=== PATIENT | female | born 1985 | race Caucasian/White ===

== ENCOUNTER → 2019-03-19 | Emergency (ER) | payer BC, MEDICAID, OTHER | LOC: C.EROB 18:35 ==

== ENCOUNTER 2019-03-21 12:05 | Inpatient (IN) | payer BC ==
[2019-03-21 12:23] VITALS: BMI 39.1
[2019-03-21 12:41] LABS: BASO # 0.1 K/uL (0.0-0.2); BASO % 0.9 % (0.0-2.0); EOS # 0.1 K/uL (0.0-0.7); EOS % 0.8 % (0.0-4.0); HEMOGLOBIN 12.6 g/dL (11.0-16.0); LYMPH # 1.4 K/uL (1.0-4.3); LYMPH % 16.5 % (20.0-40.0); MEAN CELL VOLUME 79.6 fL (81.0-99.0); MEAN CORPUSCULAR HEMOGLOBIN 26.5 pg (27.0-31.0); MEAN CORPUSCULAR HGB CONC 33.3 g/dL (33.0-37.0); MEAN PLATELET VOLUME 9.4 fL (7.2-11.7); MONO # 0.5 K/uL (0.0-0.8); MONO % 6.4 % (0.0-10.0); NEUT # 6.4 K/uL (1.8-7.0); NEUT % 75.4 % (50.0-75.0); NRBC % 0.1 % (0.0-2.0); RBC 4.77 Mil/uL (3.80-5.20); RED CELL DISTRIBUTION WIDTH 17.3 % (11.5-14.5); WHITE BLOOD COUNT 8.5 K/uL (4.8-10.8)
[2019-03-21 12:54] LABS: BLOOD UREA NITROGEN 10 mg/dL (7-17); CALCIUM 8.6 mg/dl (8.6-10.4); GFR NON-AFRICAN AMERICAN > 60; SQUAMOUS EPITHIAL 5 /hpf (0-5); URINE BILIRUBIN NEGATIVE (NEGATIVE); URINE BLOOD 3+ (NEGATIVE); URINE CLARITY Hazy (Clear); URINE COLOR Yellow (YELLOW); URINE GLUCOSE (UA) NORMAL (Normal); URINE LEUKOCYTE ESTERASE NEG Leu/uL (Negative); URINE PROTEIN 1+ mg/dL (NEGATIVE); URINE UROBILINOGEN NORMAL mg/dL (0.2-1.0)
[2019-03-21 12:58] LABS: ALBUMIN 3.8 g/dL (3.5-5.0); ALT/SGPT 13 U/L (9-52); AST/SGOT 62 U/L (14-36)
[2019-03-21] MEDS ORDERED: Bupivacaine HCl/FentaNYL Cit 0 ML EPI ONE (12:59)
[2019-03-21] MEDS ORDERED: Bupivacaine HCl/FentaNYL Cit 100 ML EPI ONE ×2 (13:01→20:45)
[2019-03-21 13:26] LABS: INR 0.9
[2019-03-21] MEDS ORDERED: Lactated Ringer's 1,000 ML IV ONE (14:21)
--- NOTE | 2019-03-21 18:24 | OBHP ---
Datetime: 03/21/2019 13:00 IP Adm Impression: Postterm, intrauterine ; No Active Labor; Intact Membranes IP Chief Complaint Other: Polyhydramnios; LGA. Maternal obesity IP Admit Plan: Admit to unit IP Admit Plan Other: Cervical ripening Admit Comment, IP Provider: This is a private patient of Dr. Dalila Zamorano Patient is a 34 y.o. , LMP 06/12/18, WAYNE 03/19/19, EGA 40w 2d confirmed by sono at 13 w 2d refered by PMD for delivery. Seen in office this morning; cervical exam at approx 1000 hours 4c m/50%. Currently, reports (+) AFM; vaginal spotting - soon after cervical exam. Denies LOF. (+) occ C tx, pain scale 4/10, every 30 minutes x 60 seconds. BPs noted upon arrival: denies headaches, blurred vision, spots, epigastric or RUQ pain. Reports increasing pedal edema in past 2 days. Patient admits to being "very nervous". care: polyhydramnios, CALI 03/18, 18.82 cm; EFW 8lb 8oz (94 percentile). Anemic. Morbidly o bese. P Ob: 2009, , female, 6lb 7oz, [facility]. Post -elevated BP x 1 week. 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 Denies STIs, abnormal Pap, ovarian cysts PMH: denies PSH: denies Drug allergies: robitussin and mucinex = palpitations NO food allergies Meds: PNV, iron - each, QD Soc Hx: denies tobacco, illicit drug or EtOH use. x 11 years. Works for [employer] Fam Hx: Mother 1984, complications of childbirth, related to elevated BP. Father 2016, age 65, complications of HTN and cardiac diseases. No known fam h/o cancer P.E.: as above. Morbidly obese, in NAD. Awake, alert, oriented to time, person and place. Pleasant and cooperative. Assessment: 34 y.o P1, 40w 2d, polyhydramnios, possible LGA for delivery. Will initiate labor with cervical ripening. Patient is receptive to epidural for pain relief. Elevated BP noted; no other sti gmata for pre-eclampsia. Category 1 tracing. Patient is clinically stable. Plan: 1) Admit 2) NPO 3) Continuous EFM 4) Admission and pre-eclamptic labs 5) Epidural 6) Cytotec, per vagina 7) Monitor BP 8) Anticipate vaginal delivery - as per, and D/W, Dr. Zamorano Adddendum: 1410 hours CBC resulted: plt 275, H/H 12.6/38.0 - Epidural placed by anesthesiologist without incdent - Cervical exam as above. cytotec 25 micrograms placed in endocervical canal without incident. Of note: gush of blood-tinged amnionic fluid noted at time of cervical exam. Possible high leak as "fore bag" still palpated. Pelvic Type - PN: Adequate Extremities - PN: Normal Abdomen - PN: Normal Back - PN: Normal Breast - PN: Not Done Lungs - PN: Normal Heart - PN: Abnormal Thyroid - PN: Not Done Neurologic - PN: Normal HEENT - PN: Normal General - PN: Normal Presentation-Admit: Vertex FHR - Baseline A Provider: 155 Contraction Comments Provider: 5-6 Comments, ACOG Physical Exam: Abdomen: Obese. Gravid. Soft. Non tender in all quadrants. Fundal heig ht 42 cm All other systems reviewed and are negative Gestation - Est Wks by US: 40w 2d IP Hx Assessment: The History has been Reviewed and is Current IP Indication for Induction: Polyhydramnios NICHD Variability Prov Fetus A: Moderate 6-25bpm NICHD Accel Fetus A IP Provider: 15X15 FHR Category Provider Fetus A: Category I NICHD Decel Fetus A IP Provider: None Dilatation, Provider: 5 Effacement, Provider: 60 Station, Provider: -3 Genitourinary Exam: Normal DTRs - PN: Not Done
[2019-03-21] MEDS ORDERED: Oxytocin 30 UNIT in NS 500 ml 30 UNITS/500 ML BAG IV ONE (20:35)
--- NOTE | 2019-03-21 22:19 | OBPN ---
Datetime: 03/21/2019 19:35 IP Progress Impression: Normal progression of labor IP Procedures: Artificial ROM; Scalp Electrode; Sterile Vag Exam IP Progress Plan: Continue present management; Augmentation; Anticipate Vaginal Delivery Membranes, Provider: Ruptured Amniotic Fluid Color, Provider: Clear Contraction Comments Provider: irregular FHR - Baseline A Provider: 155 Gestation - Est Wks by US: 40w 2d Vital Signs Provider: Reviewed; Within Normal Limits NICHD Accel Fetus A IP Provider: 15X15 FHR Category Provider Fetus A: Category I NICHD Variability Prov Fetus A: Moderate 6-25bpm Dilatation, Provider: 6 Effacement, Provider: 90 Station, Provider: -3 NICHD Decel Fetus A IP Provider: None Datetime: 03/21/2019 18:57 IP Progress Note Comment: Cervical exam performed at 1850 to assess for possible second dose of cyto amira - as above. Assessment: 34 y.o. P1, 40w 2d, polyhydraminios. Adequate response to cytotec. Category 1 tracing. Patient is clinically stable. Plan: 1) Anticipate AROM 2) Possible pitocin augmentation 3) Anticipate vaginal delivery - as per Dr. Zamorano Datetime: 03/21/2019 13:00 Presentation-Admit: Vertex
--- NOTE | 2019-03-21 22:22 | OBPN ---
Datetime: 03/21/2019 19:35 IP Progress Note Comment: Vaginal exam perfomred as above. AROM completed with placement of ISE with out incident - copiuos amount of clear amnionic fluid obtained. head well applied to the cervix . Asseeement: 34 y.o. P0, 40w 2d, polyydramnios - resolved. Category 1 tracing. BPs havenormalized. Clinically stable Plan: 1) As above. 2) Observe 3) Anticipate pitocin for augmentation - as per Dr. Zamorano
--- NOTE | 2019-03-22 02:03 | OBPN ---
Datetime: 03/22/2019 01:58 IP Progress Impression: Normal progression of labor IP Progress Plan: Continue present management; Anticipate Vaginal Delivery Membranes, Provider: Ruptured FHR - Baseline A Provider: 175 Gestation - Est Wks by US: 40.3 Presentation-Admit: Vertex IP Progress Note Comment: pt seen and examiend fo rpgresison of labor admitted 5cm, rom, cytotec, ptiocn s/p peidural pt feles pressure VE; see above a/p P1 @ 40.3 wks GA fully dilated iwth cat II oxygen left lateral debubuti IVH cont to coadn femf will dc tiocn start psuhing atnic nspvsd Vital Signs Provider: Reviewed FHR Category Provider Fetus A: Category II NICHD Variability Prov Fetus A: Moderate 6-25bpm Dilatation, Provider: 10 Effacement, Provider: 100 Station, Provider: 1 NICHD Decel Fetus A IP Provider: None
[2019-03-22] MEDS ORDERED: Sodium Citrate/Citric Acid 15 ml Sol PO STA (04:31)
[2019-03-22] MEDS ORDERED: cefOXitin IV 2 gm in Dextrose 2 GM/50 ML BAG IVPB ONE (04:38)
[2019-03-22] MEDS: cefOXitin IV 2 gm in Dextrose 2 GM/50 ML BAG IVPB SCH ×3 (04:45→20:54)
--- NOTE | 2019-03-22 04:48 | OBPN ---
Datetime: 03/22/2019 04:33 IP Progress Impression: Arrest of dilatation/descent IP Informed Consent Obtain: Section Delivery IP Progress Plan: Deliver- Section Contraction Comments Provider: q 2- 3min IP Progress Note Comment: pt fully dilated and pusing 3+ horus with cat II tracing pt coulsed on ptllcs vs continue pushign given cat II r/b/a/i ptlcs dw paeitn, consetn obatined vs see above a/p @ 40+ wks with arrest of descent conestn obatined or/anesthis aware angiboics abodmian prep washburn to gaivyt scds FHR Category Provider Fetus A: Category II Dilatation, Provider: 10 Effacement, Provider: 100 Station, Provider: -2
[2019-03-22] MEDS ORDERED: Morphine 1 mg/ml preservative-free Inj(Duramorph) ONE (04:52)
[2019-03-22] MEDS ORDERED: ePHEDrine 50 mg/ml Inj ONE (05:18)
[2019-03-22] MEDS ORDERED: Oxytocin 10 Units/ml Inj ONE (05:27)
[2019-03-22] MEDS ORDERED: Oxytocin 30 UNIT in NS 500 ml 500 ML IV ONE (06:07)
--- NOTE | 2019-03-22 06:17 | OBDS ---
DELIVERY PERSONNEL Delivery Doctor: Dalila Zamorano MD Scrub Nurse: Joan Barros OBT Diamond Cleaner: Tory Bailey RN Anesthesiologist: Taina Fuller MD MATERNAL INFORMATION Delivery Anesthesia: Epidural; Spinal Medications in Delivery: MEFOXIN 2 GMS Estimated Blood Loss (ml): 800 Placenta Cultured: Yes Maternal Complications: Prolonged Second Stage > 2 Hrs Other Maternal Complications: Polyhydramnious maternal obesity Provider Comments: pltcs nuchal x 3 tight live femlae infnat agpras 9,9 peiaticn presnt for delieyr noral appeairn uterus, bues and oare b/l LABOR SUMMARY EDC: 03/19/2019 00:00 No. Babies in Womb: 1 Attempted: No Labor Anesthesia: Epidural LABOR INFORMATION Reason for Induction: Not Applicable Onset of Labor: 03/21/2019 09:00 Complete Dilatation: 03/22/2019 01:25 Cervical Ripening Agents: Cytotec @ Oxytocin: Augmentation Group B Beta Strep: Negative Steroids Given: None Reason Steroids Not Administered: Not Applicable MEMBRANES Membranes Rupture Method: Artificial Rupture of Membranes: 03/21/2019 19:29 Length of Rupture (hrs): 9.87 Amniotic Fluid Color: Clear Amniotic Fluid Amount: Copious Amniotic Fluid Odor: Normal STAGES OF LABOR Stage 1 hrs: 16 Stage 1 min: 25 Stage 2 hrs: 3 Stage 2 min: 56 Stage 3 hrs: 0 Stage 3 min: 1 Total Time in Labor hrs: 20 Total Time in Labor min: 22 VAGINAL DELIVERY Episiotomy: None CSECTION DELIVERY Primary Indication: Arrest of Descent CSection Urgency: Emergency CSection Incidence: Primary Labor: Labor Elective: Nonelective CSection Incision: Lower Uterine Transverse BABY A INFORMATION Infant Delivery Date/Time: 03/22/2019 05:21 Method of Delivery: Born in Route : No : N/A Forceps: N/A Vacuum Extraction: N/A Shoulder Dystocia : No SHOULDER DYSTOCIA BABY A Delivery Date/Time: 03/22/2019 05:21 PRESENTATION/POSITION BABY A Presentation: Cephalic Cephalic Presentation: Vertex Vertex Position: Right Occipital Posterior Breech Presentation: N/A PLACENTA INFORMATION BABY A Placenta Delivery Time : 03/22/2019 05:22 Placenta Method of Delivery: Manual Removal Placenta Status: Delivered SCORES BABY A Heart Rate 1 min: >100 bpm Resp Effort 1 min: Good Cry Reflex Irritability 1 min: Cough or Sneeze or Pulls Away Muscle Tone 1 min: Some Flexion of Extremities Color 1 min: Body Ep[place], Extremities Blue Resuscitation Effort 1 min: Tactile Stimulation SCORE 1 MIN: 8 Heart Rate 5 min: >100 bpm Resp Effort 5 min: Good Cry Reflex Irritability 5 min: Cough or Sneeze or Pulls Away Muscle Tone 5 min: Active Motion Color 5 min: Body Epworth, Extremities Blue SCORE 5 MIN: 9 INFORMATION BABY A Gestational Age at Delivery: 40.2 Gestational Status: Term (Annotations: Data stored by [facility] on behalf of user) Infant Outcome : Liveborn Infant Sex: Female IDENTIFICATION/MEDS BABY A ID Band Number: [id number] Sensor Number: [id number] WEIGHT/LENGTH BABY A Birthweight (gms): 3740 Weight (lb): 8 Infant Weight (oz): 4 Length Inches: 21.00 Length cms: 53.3 CORD INFORMATION BABY A No. Cord Vessels: 3 Nuchal Cord Other: AROUND THE NECK X3 TIGHT Cord Blood Taken: Yes Infant Suction: None; Mouth
[2019-03-22] MEDS ORDERED: Naloxone 0.4 mg/ml Inj (Adult) IVP PRN (06:22)
[2019-03-22] MEDS ORDERED: DiphenhydrAMINE 50 mg/ml Inj IVP PRN (06:22)
[2019-03-22] MEDS: Lactated Ringer's 1,000 ML IV SCH ×2 (07:48→23:35)
[2019-03-22] MEDS: Prenatal Multivit/Folic Acid/Iron Tab PO SCH (12:05)
[2019-03-22] MEDS: Simethicone 80 mg Chewtab PO SCH ×4 (13:02→22:29)
[2019-03-22 14:45] LABS: RUBELLA AB (IGG) 11.8 index
--- NOTE | 2019-03-22 16:24 | OP ---
PROCEDURE DATE: 03/22/2019 PREOPERATIVE DIAGNOSES: Arrest of descent, polyhydramnios, failed induction of labor. POSTOPERATIVE DIAGNOSES: Arrest of descent, polyhydramnios, failed induction of labor. PROCEDURE PERFORMED: Primary low-transverse section. SURGEON: Dalila Zamorano MD ESTHETICIAN/SPA COORDINATOR: Eyad Langford MD. TYPE OF ANESTHESIA: Epidural, spinal. ESTIMATED BLOOD LOSS: 800 mL. BLOOD PRODUCT: None. COMPLICATIONS: None. OPERATIVE FINDINGS: Normal-appearing uterus, tubes, and ovaries. Live female in ROP position. Tight nuchal x3. Documentation Engineer present for delivery. Apgars 8 and 9. Weight of 8 pounds 4 ounces. SPECIMEN: Placenta. DESCRIPTION OF PROCEDURE: The patient was taken to the operating room where she had spinal epidural anesthesia. Once found to be adequate, she was placed on the operating table in dorsal supine position. The patient was then prepped and draped in the usual sterile fashion. A time-out confirmed correct patient and correct procedure. The patient was re-examined and was noted to be same exam of 10, 100, and -2. After the patient was prepped and draped in the usual sterile fashion and the time-out was performed, a Pfannenstiel skin incision was made with a scalpel and carried down to the underlying fascia with Bovie. The fascia was incised in the midline. The incision was extended laterally with the Bovie. The inferior aspect of the fascial incision was grasped with Devin clamps and the underlying rectus muscles were dissected off bluntly. Attention was then turned to the superior aspect of the fascial incision, which in a similar fashion was grasped with Allis and Devin clamps, and the underlying rectus muscles were dissected off bluntly. The rectus muscles were the bluntly in the midline using two Allis clamps and entered into clear space. The peritoneum entered in a clear space. The incision was extended laterally and superiorly until there was good visualization of the bladder. The lower end of the Sanjay was then reinserted. The vesicouterine peritoneum was incised in transverse fashion with the Metzenbaum scissors. The bladder flap was created digitally. The lower end of the Sanjay was then re-inserted. Lower uterine segment was incised in a transverse fashion. The uterine incision was extended laterally bluntly. The surgeon's hand entered the uterine cavity. The infant's head was brought to the uterine incision and 's head was delivered atraumatically, followed by delivery of the shoulders, followed by delivery of the body. There was tight nuchal cord x3 that was reduced. Both oral and nasal passages of the baby were bulb suctioned. The umbilical cord was clamped and cut. The baby was handed off to the awaiting airline operations agent. Cord blood and cord gases were collected and sent x2. The placenta was then delivered manually. The uterus was exteriorized and cleared of all clots and debris. The uterine incision was closed with 0 Vicryl in a running continuous locked fashion. A second layer of the same suture was used to close the uterus in a continuous manner and running imbricating manner with good hemostasis was noted at the incision site. The uterus was then returned to the abdomen. Pericolic gutters were cleared of all clots and debris with good hemostasis noted on all incision sites. The peritoneum was reapproximated with 2-0 chromic in a running continuous fashion. The rectus was reapproximated with a 2-0 chromic in an interrupted manner. The fascia was reapproximated with 0 Vicryl in a running continuous fashion and the subcutaneous space with 2-0 plain and the skin was reapproximated with juan. At the end of the procedure, all needle, sponge, and instrument counts were noted to be correct x2. The patient tolerated the procedure well and was transferred to the recovery room in stable condition. Dalila Zamorano MD
[2019-03-22] MEDS: Oxycodone/Acetaminophen 5/325 mg Tab PO PRN ×2 (18:07→22:30)
[2019-03-23] MEDS: cefOXitin IV 2 gm in Dextrose 2 GM/50 ML BAG IVPB SCH (04:26)
[2019-03-23] MEDS: Oxycodone/Acetaminophen 5/325 mg Tab PO PRN ×4 (05:01→21:11)
[2019-03-23] MEDS ORDERED: Bisacodyl 5mg EC Tab PO ONE (06:08)
[2019-03-23 06:24] LABS: BASO % 0.2 % (0.0-2.0); EOS # 0.1 K/uL (0.0-0.7); EOS % 0.4 % (0.0-4.0); HEMOGLOBIN 10.2 g/dL (11.0-16.0); LYMPH # 1.6 K/uL (1.0-4.3); LYMPH % 10.7 % (20.0-40.0); MEAN CELL VOLUME 80.1 fL (81.0-99.0); MEAN CORPUSCULAR HEMOGLOBIN 25.9 pg (27.0-31.0); MEAN CORPUSCULAR HGB CONC 32.3 g/dL (33.0-37.0); MEAN PLATELET VOLUME 8.6 fL (7.2-11.7); MONO # 0.8 K/uL (0.0-0.8); MONO % 5.1 % (0.0-10.0); NEUT # 12.4 K/uL (1.8-7.0); NEUT % 83.6 % (50.0-75.0); RBC 3.93 Mil/uL (3.80-5.20); RED CELL DISTRIBUTION WIDTH 16.9 % (11.5-14.5); WHITE BLOOD COUNT 14.8 K/uL (4.8-10.8)
[2019-03-23 06:38] LABS: ALB/GLOB RATIO 0.9 (1.0-2.1); ALBUMIN 2.6 g/dL (3.5-5.0); ALT/SGPT 24 U/L (9-52); AST/SGOT 32 U/L (14-36); BLOOD UREA NITROGEN 6 mg/dL (7-17); CALCIUM 8.5 mg/dl (8.6-10.4); GFR NON-AFRICAN AMERICAN > 60
[2019-03-23 08:00] LABS: BILIRUBIN,DIRECT 0.3 mg/dL (0.0-0.4); URIC ACID 6.1 mg/dL (2.2-7.5)
[2019-03-23] MEDS: Prenatal Multivit/Folic Acid/Iron Tab PO SCH (10:02)
[2019-03-23] MEDS: Simethicone 80 mg Chewtab PO SCH ×4 (10:03→21:11)
--- NOTE | 2019-03-23 20:42 | OBPPN ---
Datetime: 03/23/2019 20:40 PP Pain Prov: Within normal limits PP Nausea Prov: Denies PP Flatus Prov: Yes PP BM Prov: No PP Breasts Prov: Normal PP Heart Prov: Normal PP Lungs Prov: Normal PP Abdomen/Uterus Prov: Normal PP Lochia Prov: Normal PP Vulva/Perineum Prov: Normal PP CVA Tenderness Prov: Normal PP Extremities Prov: Normal PP C/S Incision Prov: Normal PP Progress Prov: Normal PP Impression Prov: Normal progression PP Plan Prov: Continue present management Vital Signs Provider PP: Reviewed; Within Normal Limits
[2019-03-24] MEDS: Oxycodone/Acetaminophen 5/325 mg Tab PO PRN ×3 (03:03→13:47)
[2019-03-24 08:03] VITALS: O2SAT 96
[2019-03-24] MEDS: Prenatal Multivit/Folic Acid/Iron Tab PO SCH (09:09)
[2019-03-24] MEDS: Simethicone 80 mg Chewtab PO SCH ×3 (09:10→18:47)
[2019-03-24 11:36] LABS: BASO % 0.3 % (0.0-2.0); EOS # 0.2 K/uL (0.0-0.7); EOS % 1.9 % (0.0-4.0); HEMOGLOBIN 9.7 g/dL (11.0-16.0); LYMPH % 9.6 % (20.0-40.0); MEAN CELL VOLUME 78.7 fL (81.0-99.0); MEAN CORPUSCULAR HEMOGLOBIN 26.6 pg (27.0-31.0); MEAN CORPUSCULAR HGB CONC 33.9 g/dL (33.0-37.0); MEAN PLATELET VOLUME 8.5 fL (7.2-11.7); MONO # 0.6 K/uL (0.0-0.8); MONO % 5.7 % (0.0-10.0); NEUT # 8.9 K/uL (1.8-7.0); NEUT % 82.5 % (50.0-75.0); PLATELET COUNT 273 K/uL (130-400); RBC 3.63 Mil/uL (3.80-5.20); RED CELL DISTRIBUTION WIDTH 16.9 % (11.5-14.5); WHITE BLOOD COUNT 10.8 K/uL (4.8-10.8)
[2019-03-24 12:30] LABS: ANISOCYTOSIS SLIGHT; BANDS 4 % (0-2); EOSINOPHIL 1 % (0-4); LYMPHOCYTE 7 % (20-40); MONOCYTE 5 % (0-10); NEUTROPHIL 82 % (50-75); PLATELET ESTIMATE NORMAL (NORMAL); REACTIVE LYMPHOCYTES 1 % (0-0); TOTAL CELLS COUNTED 100
[2019-03-24 12:31] LABS: HYPOCHROMIC SLIGHT
--- NOTE | 2019-03-24 12:38 | OBDCSUM ---
Datetime: 03/24/2019 12:36 Discharged to, Provider: Home Follow up at, Provider: dr bobo Disch Instr Activity: Normal activity Disch Instr Diet: Regular Discharge Instructions, Provider: Routine instructions given Discharge Diagnosis, Provider: Term Delivered Discharge Time: 03/25/2019 10:00 Follow up in weeks, Provider: 03/30/2019 Disch Referrals: None Contraception discussed, Prov: Yes Disch Activity Restrictions: No exercising; No lifting; No driving; Minimize walking; Minimize stair -climbing; No sexual activity; Nothing in vagina - [place], tampons, douche Discharge Comment, Provider: precaiot givne dxc in am Contraception after Delivery: Not Planning to Use
--- NOTE | 2019-03-24 12:39 | OBPPN ---
Datetime: 03/24/2019 12:36 PP Pain Prov: Within normal limits PP Nausea Prov: Denies PP Flatus Prov: Yes PP BM Prov: No PP Breasts Prov: Normal PP Heart Prov: Normal PP Lungs Prov: Normal PP Abdomen/Uterus Prov: Normal PP Lochia Prov: Normal PP Vulva/Perineum Prov: Normal PP CVA Tenderness Prov: Normal PP Extremities Prov: Normal PP C/S Incision Prov: Normal PP Progress Prov: Normal PP Comments Phys Exam Prov: inicjn c/d/i stapesl itnac no uterien teindere PP Impression Prov: Normal progression PP Plan Prov: Continue present management Vital Signs Provider PP: Reviewed; Within Normal Limits
--- NOTE | 2019-03-24 16:18 | OP ---
PROCEDURE DATE: 03/22/2019 SURGEON: Dalila Zamorano MD ASSISTANTS: Paula Soria MD and Gabino Chen MD PREOPERATIVE DIAGNOSIS: Arrest of descent. POSTOPERATIVE DIAGNOSIS: Arrest of descent. PROCEDURE PERFORMED: Primary low-transverse section. ESTIMATED BLOOD LOSS: 800 mL. BLOOD PRODUCT: None. COMPLICATIONS: None. OPERATIVE FINDINGS: Live female , weight of 8 pounds and 2 ounces. Apgars 9 and 9. Normal-appearing uterus, tubes, and ovaries. Tight nuchal cord x3. Dr. Paula Soria was present for the entire case and essential in gaining entry, retraction, exposure, helping in delivery. Dr. Gabino Chen was present for the end of the portion to help close all the areas and obtain hemostasis. SPECIMEN: Placenta. ANESTHESIA: Combined spinal epidural. COMPLICATIONS: None. DESCRIPTION OF PROCEDURE: The patient was taken to the operating room where she was given anesthesia. Once found to be adequate, she was placed on the operating table in dorsal supine position, the patient was prepped and draped in the usual sterile fashion. A time-out confirmed correct patient and correct procedure. The patient was given preoperative prophylactic antibiotics. A Pfannenstiel skin incision was made with a scalpel and carried down to the underlying fascia. The fascia was incised in the midline. The incision was extended laterally with the Bovie. The inferior aspect of the fascial incision was grasped with Allis and Devin clamps, and the underlying rectus muscles were dissected off bluntly. Attention was then turned to the superior aspect of the fascial incision, which in a similar fashion was grasped with Allis and Devin clamps, and the underlying rectus muscles were dissected off bluntly. The rectus muscles were then in the midline. The peritoneum was identified and entered into clear space. The incision was extended laterally and superiorly until there was good visualization of the bladder. The lower end of the Sanjay was then reinserted. The uterine incision was extended made with a scalpel extended laterally with a bandage scissors. The surgeon's hand entered the uterine cavity. Through the uterine incision, the infant's head was delivered atraumatically. There was tight nuchal x3 that was carefully reduced, followed by delivery of shoulders, followed by delivery of body, both oral and nasal passages of the baby were bulb suctioned. The umbilical cord was clamped and cut. Baby was handed off to the awaiting summer intern. Cord blood and cord gases were collected and sent x2. The placenta was then delivered manually. The uterus was exteriorized and cleared of all clots and debris. The uterine incision was closed with 0 Vicryl in a running continuous locked fashion. A second layer of the same suture was used to close the uterus in running imbricating manner. Good hemostasis. There is normal tubes and ovaries. The uterus was then returned to the abdomen. Pericolic gutters were cleared of all clots and debris. As noted before, there is good hemostasis of the uterine incision site. The peritoneum was reapproximated and closed with a 2-0 chromic in a running continuous fashion. The rectus was reapproximated with 2-0 chromic in an interrupted manner. The fascia was reapproximated with 0 Vicryl in a running continuous fashion. The subcutaneous space was closed with a 2-0 plain in an interrupted manner and the skin was closed with juan. At the end of the procedure, all needle, sponge and instrument counts were noted to be correct x2. The patient tolerated the procedure well and was transferred to the recovery room in stable condition. Dalila Zamorano MD
[2019-03-24 16:40] VITALS: BP 132/80; RESP 18; TEMP 98.5
[2019-03-24 23:59] VITALS: PULSE 96
== END 2019-03-24 19:30 | disposition home or self-care (01) | DRG 788 ==
LOC: C.EROB 12:05 → C.4D 12:27 → C.4M 03-22 09:34
PROVIDERS: ADMIT Obstetrics & Gynecology; ATTEND Obstetrics & Gynecology
PROC: 3E0P7VZ Introduction of Hormone into Female Reproductive, Via Natural or Artificial Opening (ICD-10-PCS; principal; 2019-03-22)
PROC: 10D00Z1 Extraction of Products of Conception, Low, Open Approach (ICD-10-PCS; 2019-03-22)
DX: O69.1XX0 Labor and delivery complicated by cord around neck, with compression, not applicable or unspecified (principal); Z3A.40 40 weeks gestation of pregnancy; O62.1 Secondary uterine inertia; O63.1 Prolonged second stage (of labor); O32.4XX0 Maternal care for high head at term, not applicable or unspecified; O61.0 Failed medical induction of labor; E66.9 Obesity, unspecified; O36.63X0 Maternal care for excessive fetal growth, third trimester, not applicable or unspecified; O99.214 Obesity complicating childbirth; Z37.0 Single live birth